=== PATIENT | male | born 1995 | race Caucasian/White ===

== ENCOUNTER 2022-12-16 07:10 | Outpatient (CLI) | payer OTHER, SELFPAY ==
--- NOTE | 2022-12-16 07:19 | US_ITS ---
WS: [id number] RIGHT UPPER QUADRANT ULTRASOUND HISTORY: ELEVATED LIVER ENZYMES COMPARISON: None available. Liver: 17.8 cm in length. Liver is top normal size. Very mild coarse echotexture from hepatic steatos is. No mass or bile duct dilatation. Portal Vein: Normal hepatopetal flow with monophasic waveform. Gallbladder: Normally distended gallbladder with no stones or wall thickening. CBD: 0.4 cm Pancreas: Normal size and echogenicity. Right kidney: 11.6 cm in length. Normal size and echogenicity. No hydronephrosis or mass. Aorta and IVC: Unremarkable abdominal aorta and IVC. No ascites. US/US abdomen limited [id number] IMPRESSION: Very mild hepatic steatosis and hepatomegaly. Otherwise negative.
== END 2022-12-16 07:11 | disposition home or self-care (01) ==
PROVIDERS: Visit Provider Family Medicine
DX: R74.8 Abnormal levels of other serum enzymes (principal); R16.0 Hepatomegaly, not elsewhere classified; K76.0 Fatty (change of) liver, not elsewhere classified
CPT/HCPCS: 76705